=== PATIENT | female | born 1975 | race Caucasian/White ===

== ENCOUNTER → 2019-06-22 08:38 | Outpatient (CLI) | payer OTHER, SELFPAY ==
--- NOTE | 2019-06-22 | DI.MG.S_ITS ---
UNILATERAL LEFT DIGITAL DIAGNOSTIC MAMMOGRAM 3D/2D WITH ADDITIONAL VIEWS: 06/22/2019 CLINICAL: Additional evaluation requested from prior study. Family history of breast cancer. Outside screening mammogram report from [facility] [id number] dated 05/11/2019 states LEFT BREAST: There are new grouped calcifications in the deep central slightly medial position. Recommend targeted magnification views for further evaluation. The remainder the parenchymal pattern is stable...LEFT BREAST: Incomplete examination. BI-RADS Category 0...RECOMMENDATION: Targeted diagnostic magnification views of the left breast.. Comparison is made to exams dated: 05/11/2019 mammogram - [facility] and 01/27/2017 mammogram - [facility]. The tissue of left breast is heterogeneously dense. This may lower the sensitivity of mammography. There are grouped coarse calcifications within the left breast central to the nipple at posterior depth, projecting slightly more medial within the left breast, as identified on comparison outside screening mammogram from [facility] dated 05/11/19. There is a focal asymmetry within the lower inner left breast at middle to posterior depth which improves with spot compression views. IMPRESSION: INCOMPLETE: NEEDS ADDITIONAL IMAGING EVALUATION There are grouped coarse calcifications within the left breast central to the nipple at posterior depth, projecting slightly more medial within the left breast, as identified on comparison outside screening mammogram from [facility] dated 05/11/19. A targeted ultrasound is recommended for further evaluation. There is a focal asymmetry within the lower inner left breast at middle to posterior depth which improves with spot compression views. A targeted ultrasound is recommended for further evaluation. This exam was interpreted at Station ID: [id number]. NOTE: For mammograms, a report in lay terms will be sent to the patient. Approximately 15% of breast malignancies will not be visualized mammographically. In the management of a palpable breast mass, a negative mammogram must not discourage biopsy of a clinically suspicious lesion. Electronically Signed By: Keith Dean M.D. ecl/:06/22/2019 10:09:48 ACR BI-RADS Category 0: Incomplete 3340F
--- NOTE | 2019-06-22 | DI.US.S_ITS ---
LIMITED ULTRASOUND OF LEFT BREAST: 06/22/2019 CLINICAL: Patient returns today to evaluate additional findings in the left breast. Comparison is made to exams dated: 06/22/2019 mammogram - [facility], 05/11/2019 mammogram - [facility], 01/27/2017 mammogram, and 09/04/2010 ultrasound - [facility]. Color flow and real-time ultrasound of the left breast 6-9 o'clock region were performed. Bear scale images of the real-time examination were reviewed. There is no ultrasound correlate for the grouped coarse calcifications within the left breast central to the nipple at posterior depth, projecting slightly more medial within the left breast, as identified on comparison outside screening mammogram from [facility] dated 05/11/19 and which persisted on additional diagnostic views performed today 06/22/2019. There is a 0.4 x 0.3 x 0.2 cm oval hypoechoic indistinct probable complicated cyst in the left breast at 7:00 position 3 cm from the nipple which demonstrates posterior acoustic enhancement/increased through transmission and no vascularity on Doppler ultrasound. This may correlate with the focal asymmetry within the lower inner left breast at middle to posterior depth which improved with spot compression views on diagnostic mammography performed earlier today on 06/22/2019. IMPRESSION: PROBABLY BENIGN 1) No ultrasound correlate for the grouped coarse calcifications within the left breast central to the nipple at posterior depth, projecting slightly more medial within the left breast, as identified on comparison screening and diagnostic mammography. A follow-up mammogram and possible ultrasound in 6 months is recommended to demonstrate stability. The patient is advised to monitor her breasts and to return sooner for re-evaluation should she feel anything grow or change. 2) 0.4 x 0.3 x 0.2 cm probable complicated cyst in the left breast at 7:00 position 3 cm from the nipple. This may correlate with the focal asymmetry within the lower inner left breast at middle to posterior depth seen on diagnostic mammography performed earlier today on 06/22/2019. A follow-up mammogram and possible ultrasound in 6 months is recommended to demonstrate stability. The patient is advised to monitor her breasts and to return sooner for re-evaluation should she feel anything grow or change. This exam was interpreted at Station ID: [id number]. Electronically Signed By: Keith Dean M.D. ecl/:06/22/2019 10:19:03 letter sent: Followup Recommended Ultrasound BI-RADS: 3 Probably benign
== END ==
PROVIDERS: Visit Provider Family Medicine
DX: R92.8 Other abnormal and inconclusive findings on diagnostic imaging of breast (principal); N64.89 Other specified disorders of breast; Z80.3 Family history of malignant neoplasm of breast
CPT/HCPCS: 76642; 77065; G0279

== ENCOUNTER → 2020-01-29 09:28 | Outpatient (CLI) | payer OTHER, SELFPAY ==
--- NOTE | 2020-01-29 | DI.MG.S_ITS ---
BILATERAL DIGITAL DIAGNOSTIC MAMMOGRAM 3D/2D SHORT-TERM FOLLOW-UP: 01/29/2020 CLINICAL: Patient returns for a 6 month follow up of the left breast, due for bilateral exam. Comparison is made to exams dated: 06/22/2019 mammogram - [facility], 05/11/2019 mammogram - [facility], and 01/27/2017 mammogram - [facility]. The tissue of both breasts is heterogeneously dense. This may lower the sensitivity of mammography. There is a focal asymmetry in the lower inner left breast posterior depth is less prominent. There also are stable grouped calcifications in the left breast at central/ 11 o'clock posterior depth. No other significant masses, calcifications, or other findings are seen in either breast. IMPRESSION: INCOMPLETE: NEEDS ADDITIONAL IMAGING EVALUATION 1) The focal asymmetry in the lower inner left breast at posterior depth is indeterminate. A targeted ultrasound is recommended and will immediately follow. 2) The stable grouped calcifications in the left breast at central/ 11 o'clock posterior depth are probably benign. A follow-up mammogram is recommended in 6 months. This exam was interpreted at Station ID: [id number]. NOTE: For mammograms, a report in lay terms will be sent to the patient. Approximately 15% of breast malignancies will not be visualized mammographically. In the management of a palpable breast mass, a negative mammogram must not discourage biopsy of a clinically suspicious lesion. Electronically Signed By: Michael Panda M.D. slc/:01/29/2020 10:17:43 ACR BI-RADS Category 0: Incomplete 3340F
--- NOTE | 2020-01-29 | DI.US.S_ITS ---
LIMITED ULTRASOUND OF LEFT BREAST AND AXILLA: 01/29/2020 CLINICAL: Lt breast 6 mos F/U. Comparison is made to exams dated: 01/29/2020 mammogram, 06/22/2019 ultrasound, 06/22/2019 mammogram - [facility], and 05/11/2019 mammogram - [facility]. Color flow and real-time ultrasound of the left breast axilla were performed. Bear scale images of the real-time examination were reviewed. There is a 0.4 cm x 0.4 cm x 0.2 cm oval cyst in the left breast at 7 o'clock posterior depth 3 cm from the nipple. This oval cyst displays a well-defined boundary and internal echoes. This abnormality is not significantly changed. Color flow imaging demonstrates that there is no vascularity present. This may corresponds to the focal asymmetry seen on mammogram. IMPRESSION: PROBABLY BENIGN Stable 0.4 cm complicated cyst in the left breast is probably benign. A follow-up mammogram and ultrasound in 6 months is recommended to demonstrate stability. Exam findings were conveyed to the patient. Follow-up left breast mammogram was also recommended for grouped calcifications. This exam was interpreted at Station ID: [id number]. Electronically Signed By: Michael Panda M.D. slc/:01/29/2020 11:15:37 letter sent: Followup Recommended Ultrasound BI-RADS: 3 Probably benign
== END ==
DX: R92.8 Other abnormal and inconclusive findings on diagnostic imaging of breast (principal); R92.1 Mammographic calcification found on diagnostic imaging of breast; N60.02 Solitary cyst of left breast
CPT/HCPCS: 76642; 77066; G0279